=== PATIENT | female | born 1970 | race Caucasian/White ===

== ENCOUNTER 2019-04-24 05:50 | Day surgery (SDC) | payer OTHER ==
[~2019-04-24] VITALS: Ht 177.8 cm; Wt 82.5 kg
[~2019-04-24 05:50] MED LIST: NORCO 7.5-3251 EACH PO; ONDANSETRON ODT8 MG PO
--- NOTE | 2019-04-24 08:34 | NUR ---
04/24/19 0834 Keisha Sanchez 0822 PT ARRIVED IN PACU SLEEPY WITH NO C/O'S. 0834 AT BEDSIDE TALKING TO PT. ALL QUESTIONS ANSWERED.
--- NOTE | 2019-04-24 09:06 | NUR ---
CRACKERS AND ICED WATER GIVEN. LESLY BADILLO ON WARM. CALL LIGHT WITHIN REACH.
--- NOTE | 2019-04-24 09:11 | NUR ---
SPOUSE AT BEDSIDE. PATIENT IS EATING AND DRINKING AND TOLERATING THAT WELL.
--- NOTE | 2019-04-24 10:49 | NUR ---
LE 1030: PATIENT UP TO THE BATHROOM WITH RN STANDBY. PATIENT'S LEFT LOWER ABDOMINAL SCOPE SITE IS LEAKING. THIS IS REINFORCED WITH GAUZE AND PAPER TAPE. EXTRA SENT HOME WITH PATIENT FOR REINFORCEMENT IF NECESSARY. PATIENT VOIDS 150 ML CLEAR YELLOW URINE AND REQUESTS DISCHARGE. DISCHARGE INSTRUCTIONS ARE GIVEN AND PATIENT VERBALIZES UNDERSTANDING. PATIENT IS GETTING DRESSED IN PRESENCE OF SPOUSE. PATIENT TRANSFERS SELF TO WHEELCHAIR AND THEN TO PERSONAL VEHICLE AND TOLERATES THAT WELL.
--- NOTE | 2019-04-24 13:34 | NUR ---
PT ALERT, ORIENTED AND SUPPORTED BY HER JAYSON. PT SEEMS INFORMED, HAS FEW QUESTIONS. PT DID REQUEST PRAYER, WILL FOLLOW NEEDED
--- NOTE | 2019-04-25 12:56 | OR ---
[facility] [address] [place], [place] [address] Signed DATE OF OPERATION: 04/24/2019 SURGEON: Yin Stover MD CLINICAL PHARMACY COORDINATOR: Adilene Jenkins DO. PREOPERATIVE DIAGNOSIS: Right adnexal mass. POSTOPERATIVE DIAGNOSIS: Right adnexal mass, pending pathology. PROCEDURE: Laparoscopy with right salpingo-oophorectomy. ANESTHESIA: General ET. ESTIMATED BLOOD LOSS: Minimal. DRAINS: None. INDICATIONS AND FINDINGS: The patient is a 49-year-old female, 6, para 4, SAB 1, VIP 1, who was found to have a large right adnexal mass following a fall, which required a CT. The mass was septated, large and appeared to be a probable serous cystadenoma. Decision was made to proceed with surgical intervention. At the time of surgery, exam under anesthesia revealed an enlarged irregular right ovary, but otherwise a normal pelvis. On laparoscopy, the pelvis appeared normal other than an enlarged irregular right ovary. The left tube and ovary and uterus appeared normal. The capsule was smooth on the ovary and there was no evidence of any ascites. DESCRIPTION OF PROCEDURE: The patient was prepped and draped in the dorsal lithotomy position. An open-sided speculum was placed. The anterior lip of the cervix was visualized and grasped with a single-tooth tenaculum. The Hulka clamp was then placed. The tenaculum and speculum were removed. Attention was then directed above. The infraumbilical area was injected Electronically Signed By: YIN STOVER MD 04/25/19 1256 PATIENT NAME: KAT IRVING OPERATIVE REPORT DATE OF : 68 REPORT #: [id number] PHYSICIAN: YIN STOVER MD PCP: JOHNNIE BURRELL MD REPORT IS CONFIDENTIAL AND NOT TO BE RELEASED WITHOUT AUTHORIZATION [facility] [address] [place], [place] [address] Signed with 0.5% Marcaine plain and incision made in the infraumbilical area with a knife. Each layer was then serially elevated and incised until the fascia was opened and identified. Stay sutures of 0 Vicryl were placed. The peritoneum was opened bluntly. The Daljit cannula was placed and the balloon inflated and this was tied into place. Placement of the scope confirmed proper positioning. CO2 was then introduced into the abdomen. Secondary ports were placed laterally. These were slightly below the umbilicus and lateral. Each of these were transilluminated, injected with the Marcaine, incision made with a knife and 5 mm ports were placed under direct vision. The pelvis was visualized and the planned procedure appeared appropriate. The infundibulopelvic ligament on the patient's right was then coagulated multiple times and then divided. A 0 PDS Endoloop was then placed x2 as the 1st did not have optimum placement. After the placement of the 2nd loop, good occlusion of the infundibulopelvic ligament was noted. The broad ligament was then serially coagulated and divided with the LigaSure [place] device. The utero-ovarian pedicle was then coagulated multiple times and divided. The specimen was then placed into a bag introduced through the central port using the 5 mm scope on the side port. The specimen was placed into the bag and brought up to the abdominal wall after removal of the Cannon. The bag was then opened slightly and the edges grasped with Cara clamps. The cyst was decompressed with an 18-gauge needle and syringe. There was no spillage of any contents on the abdominal wall or within the abdominal cavity. When it was significantly by drainage of several cysts, the specimen could be removed in the bag. Following this, the pelvis was revisualized after reinflating the abdomen. The umbilical site was closed just by bringing the stay sutures together. There was no evidence of any bleeding at all and the pelvis appeared to be normal following the procedure and the procedure was terminated. The instruments were removed from the abdomen after allowing as much CO2 as possible to escape. The fascial incision of the umbilicus was re-identified and closed with a running suture of 0 Vicryl. The stay sutures were tied across as well. The skin incisions were closed with subcuticular sutures of 3-0 Vicryl Rapide. Attention was directed down below and the instruments removed from the cervix. Inspection of the cervix showed no evidence of any ongoing bleeding. The procedure was then terminated and the patient was taken to the recovery room in good condition. Yin Stover MD PJW/MODL /[id number] Electronically Signed By: YIN STOVER MD 04/25/19 1256 PATIENT NAME: KAT IRVING OPERATIVE REPORT DATE OF : 68 REPORT #: [id number] PHYSICIAN: YIN STOVER MD PCP: JOHNNIE BURRELL MD REPORT IS CONFIDENTIAL AND NOT TO BE RELEASED WITHOUT AUTHORIZATION [address] [place] [address] Signed cc: Dr. Adilene Burrell Copies: ADILENE JENKINS DO ~ Electronically Signed By: YIN STOVER MD 04/25/19 1256 PATIENT NAME: KAT IRVING OPERATIVE REPORT DATE OF : 68 REPORT #: [id number] PHYSICIAN: YIN STOVER MD PCP: JOHNNIE BURRELL MD REPORT IS CONFIDENTIAL AND NOT TO BE RELEASED WITHOUT AUTHORIZATION
--- NOTE | 2019-04-26 14:04 | PATH ---
[facility] [address] [place], [place] [address] Signed SPECIMEN(S): A RIGHT OVARY, TUBE AND CYST SPECIMEN SOURCE: A. RIGHT OVARY, TUBE AND CYST CLINICAL HISTORY: Right adnexal mass; menometrorrhagia; pelvic fullness. FINAL PATHOLOGIC DIAGNOSIS: Right ovary, tube and cyst: - Multiloculated ovarian benign seromucinous cyst adenoma. - Negative for atypical features. - Segment of benign oviduct. - Incidental benign paratubal cyst. JVR:job:[id number] MICROSCOPIC EXAMINATION: Histologic sections of all submitted blocks are examined by light microscopy. These findings, together with the gross examination, support the pathologic diagnosis. GROSS DESCRIPTION: The specimen is received in a formalin-filled specimen container labeled "SM". A twisted, partially collapsed, cystically enlarged allen-manuel ovary is 7.5 x 5.0 x 2.5 cm and 48 g. The corresponding purple-manuel fallopian tube with free and delicate fimbriated end is 5.5 x 0.7 cm. The smooth outer ovarian surface is inked black. Sectioning reveals a large 4 cm, thin-walled cystic space filled with watery straw-colored fluid. Smaller intact and collapsed similar-appearing cystic spaces are up to 1.5 cm. Multiple sections of ovary are submitted in cassettes (A1-A7). A cross section of fallopian tube and the entire longitudinally sectioned fimbriated end are submitted in cassette (A8). GW (under the direct supervision of a pathologist) The Gross Description was prepared using a voice recognition system. The report was reviewed for accuracy; however, sound-alike word errors, addition and/or deletions may occur. If there is any question about this report, please contact Client Services. PERFORMING LABORATORY: PATIENT NAME: KAT IRVING PATHOLOGY DATE OF : 68 REPORT #: [id number] PHYSICIAN: [facility] PCP: JOHNNIE BURRELL MD REPORT IS CONFIDENTIAL AND NOT TO BE RELEASED WITHOUT AUTHORIZATION [facility] [address] [place] [address] [place], [place] [address] Signed The technical component was performed by [facility], [address] [place] [address] (Bail Agent: Vivian Velazquez MD; CLIA# [id number]). Professional interpretation [place] [address] (Bail Agent: Aman Morales M.D.). Diagnostician: Aman Morales MD Pathologist Electronically Signed 04/26/2019 Copies: ~ PATIENT NAME: KAT IRVING PATHOLOGY DATE OF : 68 REPORT #: [id number] PHYSICIAN: SIMON CALHOUN PCP: JOHNNIE BURRELL MD REPORT IS CONFIDENTIAL AND NOT TO BE RELEASED WITHOUT AUTHORIZATION
== END 2019-04-24 10:35 | disposition home or self-care (01) ==
LOC: DS 05:50
PROVIDERS: Obstetrics & Gynecology
PROC: 0UT54ZZ Resection of Right Fallopian Tube, Percutaneous Endoscopic Approach (ICD-10-PCS; 2019-04-24)
PROC: 0UT04ZZ Resection of Right Ovary, Percutaneous Endoscopic Approach (ICD-10-PCS; principal; 2019-04-24 06:45)
DX: D27.0 Benign neoplasm of right ovary (principal); N83.8 Other noninflammatory disorders of ovary, fallopian tube and broad ligament; N81.2 Incomplete uterovaginal prolapse; N39.3 Stress incontinence (female) (male); Z98.51 Tubal ligation status
CPT/HCPCS: 00840; J0131; J1100; J1644; J1885; J2250; J2405; J2704; J2765; J3010; J7121